=== PATIENT | female | born 2000 | race Caucasian/White ===

== ENCOUNTER 2023-11-14 13:41 | Outpatient (CLI) | payer OTHER ==
[~2023-11-14] VITALS: Ht 157.5 cm; Wt 68.0 kg
[2023-11-14] MEDS ORDERED: RINGERS SOLUTION,LACTATED 1,000 ML IV SCH (14:15)
[2023-11-14] MEDS ORDERED: PRENATAL TABLE1 EAC5 PO (14:29)
[2023-11-14 14:35] LABS: HEMATOCRIT 31.9 % (36.0-45.00); MEAN CELL VOLUME 83.5 fL (80.00-100.00); PLATELET COUNT 175 K/uL (150-450); RED BLOOD COUNT 3.82 M/uL (4.00-6.00); RED CELL DISTRIBUTION WIDTH 13.5 % (11.5-14.5); URINE APPEARANCE Clear; URINE BILIRRUBIN Negative (NEGATIVE); URINE BLOOD Negative; URINE COLOR Yellow; URINE GLUCOSE Negative (NEGATIVE); URINE LEUKOCYTE Negative; URINE NITRATE Negative; URINE PROTEIN Negative (NEGATIVE); URINE UROBILINOGEN 0.2 E.U./dl
[2023-11-14 14:36] LABS: HEMOGLOBIN 10.9 g/dL (12.0-15.00); MEAN CORPUSCULAR HEMOGLOBIN 28.5 pg (27.00-32.0); URINE BACTERIA 1664.2 uL (0.0-1933); URINE EPITHELIAL CELLS 37.4 uL (0.0-38.8); URINE WBC 39.4 uL (0.0-23.2)
[2023-11-14 14:37] LABS: URINE RBC 0.2 uL (0.0-20.8)
[2023-11-14 15:05] LABS: ALBUMIN 2.4 gm/dL (3.4-5.0); BILIRUBIN TOTAL 0.33 mg/dL (0.3-1.2); CALCIUM 8.5 mg/dL (8.5-10.1); CREATININE SERUM 0.57 mg/dL (0.55-1.02); GFR 129.23; GLOBULINA 3.6 G/DL (2.4-3.5); POTASSIUM 3.57 mEq/L (3.5-5.1)
== END 2023-11-15 10:12 | disposition home or self-care (01) ==
LOC: OBS/DEL 13:41
PROVIDERS: ATTEND Specialist
DX: O26.893 Other specified pregnancy related conditions, third trimester (principal); Z3A.29 29 weeks gestation of pregnancy; R10.2 Pelvic and perineal pain